=== PATIENT | female | born 1995 | race Caucasian/White ===

== ENCOUNTER 2018-06-03 16:49 | Emergency (ER) | payer OTHER ==
--- OUTSIDE RECORDS SUMMARY | 2018-06-03 17:01 | XMS REPORT | Continuity of Care Document ---
:1995 External Reference #:[id number] Author Name Jose Knowles M.D. Address [address] [facility] [address] [place] [address] Care Team Providers Name Role Phone Anthony Pastrana DESIGN PRINTING MACHINE SET UP OPERATOR Care Team Information Supervisor Reclamation Unavailable Payers Date Identification Numbers Payment Provider Subscriber Policy Number: [id number] [facility] Omayra Cabrera PayID: [id number] [address] [place] [address] Policy Number: [id number] [employer] Omayra Cabrera PayID: [id number] [address] [place] [address] Advance Directives Description No Information Available Problems Description No Information Family History Date Family Member(s) Observation Comments Father 61 Mother 60 Social History Type Date Description Comments Sex Unknown Occupation Student Occupation [employer] ETOH Use Denies alcohol use Tobacco Use Start: Unknown Patient has never smoked Smoking Status Reviewed: 02/26/17 Patient has never smoked Allergies, Adverse Reactions, Alerts Description No Known Drug Allergies Medications Medication Date Status Form Strength Qnty SIG Indications Ordering Provider Bacitracin 05/14/ Active Ointment 500Unit/GM 30gm apply to L03.012 Benson, (External) 2019 affected Jose Gómez, area three M.D. times a day as needed till healed Mizara / Active B/C-1 Tab Z30.41 Unknown 0000 qd Cipro 03/24/ Hx Tablets 500mg 20tab 1 tab by J01.40 Benson, 2018 - s mouth twice Jose Gómez, 04/03/ a day M.D. 2018 Amoxicillin 02/26/ Hx Capsules 500mg 30cap 1 by mouth J01.40 [facility], 2018 - s three times Ahmaisabell Gómez, 03/07/ a day M.D. 2017 Diflucan 02/17/ Hx Tablets 150mg 2tabs 1 tab by [facility], 2018 - mouth today Jose Gómez, and repeat M.D. 2017 in 1 week as needed Azithromycin 01/06/ Hx Tablets 250mg 6tabs take two Sujatha01.40 Benson 2017 - tablets by Jose Gómez, 02/06/ mouth as M.D. 2017 one dose on the first day then take one daily thereafter x 4 days Prednisone 01/06/ Hx Tablets 20mg 8tabs 2 tab by Sujatha01.40 [facility], 2017 - mouth daily Jose Gómez, 02/06/ 4 days M.D. 2017 Tamiflu 05/09/ Hx Capsules 75mg 10cap 1 cap by J09.x9 Benson 2018 - s mouth twice Jose Gómez, 05/13/ a day M.D. 2017 Clarithromycin 02/26/ Hx Tablets 500mg 20tab tab 1 by J01.40 [facility], 2017 - s mouth twice Jose Gómez, 03/18/ a day M.D. 2016 Azithromycin 12/11/ Hx Tablets 250mg 6tabs take two Sujatha01.40 [facility] 2016 - tablets by Jose Gómez, 12/16/ mouth as M.D. 2016 one dose on the first day then take one daily thereafter x 4 days Azithromycin 07/17/ Hx Tablets 500mg 7tabs 1 by mouth H66.93 [facility], 2016 - every day Jose Gómez, 07/23/ M.D. 2016 J01.40 Diflucan 07/17/2016 - Hx Tablets 150mg 2tabs 1 tab by [facility], 04/08/2017 mouth today Jose Gómez, and repeat in M.D. 1 week as needed Diflucan 05/15/2016 - Hx Tablets 100mg 10tabs 1 by mouth [facility], 05/25/2016 every day x Ahmaisabell Bourne., 10 days M.D. Azithromycin 05/07/2016 - Hx Tablets 500mg 10tabs 1 by mouth [facility], 05/16/2016 every day Ahmad M., M.D. Prednisone 05/07/2016 - Hx Tablets 20mg 18tabs 3 tab by [facility], 05/22/2016 mouth daily 3 Ahmad M., days, then 2 M.D. tab daily x 3 d , then 1 tab daily 3d Azithromycin 02/29/2016 - Hx Tablets 500mg 10tabs 1 by mouth J02.0 [facility], 03/07/2016 every day Ahmad M. M.D. Ibuprofen 02/29/2016 - Hx Tablets 800mg 90tabs 1 tab by J02.9 [facility], 04/08/2017 mouth every 8 Ahmad M., hours with M.D. food as needed for pain Amoxicillin 02/16/2016 - Hx Capsules 500mg 30caps 1 by mouth 02.9 [facility], 2016 three times a Ahmad M., day M.D. Amoxicillin 01/31/2016 - Hx Capsules 500mg 30caps 1 by mouth J02.9 [facility], 02/10/2016 three times a Ahmad M., day M.D. Prednisone 01/31/2016 - Hx Tablets 20mg 18tabs 3 tab by J02.9 [facility], 2016 mouth daily 3 Ahmad M., days, then 2 M.D. tab daily x 3 d , then 1 tab daily 3d Amoxicillin 01/03/2016 - Hx Tablets 500mg 30tabs 1 three times J02.9 [facility], 01/13/2016 a day x10 day Ahmad Rico M.D. Prednisone 01/03/2016 - Hx Tablets 20mg 18tabs 3 tab by 02.9 [facility], 01/13/2016 mouth daily 3 Ahmad M., days, then 2 M.D. tab daily x 3 d , then 1 tab daily 3d Silvadene 11/18/2015 - Hx Cream 1% 50G apply twice a [facility], 01/03/2016 day to Ahmad M., affected area M.D. --covering with telfa and adrianne Zithromax 10/07/2015 - Hx Tablets 250mg 6tabs tab 2 today S80.26 [facility], 10/12/2015 and then tab 2A Ahmad M., one by mouth M.D. every day x 4 days Amoxicillin 07/07/2015 - Hx Tablets 500mg 30tabs 1 three times J02.9 [facility], 07/18/2015 a day x10 day Jose Gómez M.D. Amoxicillin 05/16/2015 - Hx Tablets 500mg 40tabs 2 by mouth J20.9 [facility] , 05/26/2015 twice a day Jose Gómez M.D. Prednisone 05/16/2015 - Hx Tablets 20mg 8tabs 2 tab by J20.9 [facility], 05/20/2015 mouth daily 4 Jose Gómez, days M.D. Azithromycin 03/18/2015 - Hx Tablets 250mg 6tabs take two J01.80 [facility], 03/31/2015 tablets by Jose Gómez, mouth as one M.D. dose on the first day then take one daily thereafter x 4 days Omeprazole 03/18/2015 - Hx Capsules DR 40mg 30caps 1 by mouth A09 [facility] , 01/03/2016 every day Jose Gómez M.D. Medrol (Kevin) 12/06/2014 - Hx Tablets 4mg 1Pak use as 463 [facility], 03/31/2015 directed Jose Gómez M.D. Upper Back And 11/04/2014 - Hx modalities as [facility], Cervical Neck 05/09/2015 needed Jose Gómez PT M.Isabell. Please Evaluate 10/15/2014 - Hx dx: S/p [facility], For PT Need 01/20/2015 concussion Jose Gómez, and cervical M.DAury neck pain Penicillin V - Hx Solution 250mg/5M 462 Unknown Potassium 12/16/2014 Rec L 463 Lidocaine Viscous - 05/09/2015 Hx Solution 2% Unknown Immunizations CPT Code Status Date Vaccine Lot # 36141 Given 04/04/2015 Flu Vaccine [id number] 60623 Given 06/18/2014 TDaP [id number] 26220 Given 09/09/2013 Hep A Ped/Adolescent 2Dose Sched 77208 Given 03/10/2013 Meningococcal Conjugate Vaccine 02596 Given 03/10/2013 Flu Vaccine 58528 Given 03/10/2013 Hep A Ped/Adolescent 2Dose Sched 08625 Given 03/03/2012 Flu Vaccine 69952 Given 02/20/2011 Flu Vaccine 22736 Given 02/15/2010 Flu Vaccine 04142 Given 08/20/2009 Human Papilloma Virus (HPV) 36902 Given 04/19/2009 Human Papilloma Virus (HPV) 17047 Given 02/28/2009 Flu Vaccine 91707 Given 02/15/2009 Human Papilloma Virus (HPV) 21035 Given 02/11/2008 Meningococcal Conjugate Vaccine 25548 Given 02/11/2008 Flu Vaccine 42313 Given 02/04/2007 Flu Vaccine 51449 Given 10/15/2006 Varicella Vaccine 90212 Given 10/15/2006 TDaP 23662 Given 08/05/2000 DTaP NDC [id number] ML 0.50 28695 Given 08/05/2000 MMR 34811 Given 08/05/2000 IPV 31498 Given 09/14/1996 DTaP NDC [id number] ML 0.50 00276 Given 06/15/1996 IPV 66079 Given 06/15/1996 Hemophilus Influenza B Vaccine 26405 Given 04/03/1996 Varicella Vaccine 05632 Given 04/03/1996 MMR 54828 Given 1995 Hemophilus Influenza B Vaccine 06994 Given 1995 DTaP NDC [id number] ML 0.50 55755 Given 1995 IPV 21425 Given 1995 Hep B To Age 18 11064 Given 1995 IPV 88654 Given 1995 DTaP NDC [id number] ML 0.50 46643 Given 1995 Hemophilus Influenza B Vaccine 43866 Given 1995 Hep B To Age 18 33561 Given 1995 IPV 96814 Given 1995 DTaP NDC [id number] ML 0.50 30752 Given 1995 Hemophilus Influenza B Vaccine 63663 Given 1995 Hep B To Age 18 Vital Signs Date Vital Result Comment 05/14/2018 2:15pm BP Systolic 112 mmHg BP Diastolic 60 mmHg Height 68 inches 5'8" Weight 131.00 lb BMI (Body Mass Index) 19.9 kg/m2 Heart Rate 97 /min Respiratory Rate 16 /min 03/24/2018 10:02am BP Systolic 112 mmHg BP Diastolic 62 mmHg Height 68 inches 5'8" Weight 131.00 lb BMI (Body Mass Index) 19.9 kg/m2 Heart Rate 102 /min Respiratory Rate 16 /min 2018 3:24pm BP Systolic 112 mmHg BP Diastolic 60 mmHg Height 68 inches 5'8" Weight 134.00 lb BMI (Body Mass Index) 20.4 kg/m2 Heart Rate 98 /min Respiratory Rate 16 /min 01/06/2018 11:10am BP Systolic 102 mmHg BP Diastolic 56 mmHg Height 68 inches 5'8" Weight 133.00 lb BMI (Body Mass Index) 20.2 kg/m2 Heart Rate 70 /min Body Temperature 97.4 F Respiratory Rate 16 /min 05/09/2017 10:39am BP Systolic 98 mmHg BP Diastolic 56 mmHg Height 68 inches 5'8" Weight 131.00 lb BMI (Body Mass Index) 19.9 kg/m2 Heart Rate 86 /min Body Temperature 99.5 F Respiratory Rate 16 /min 2017 2:29pm BP Systolic 126 mmHg BP Diastolic 62 mmHg Height 68 inches 5'8" Weight 127.00 lb BMI (Body Mass Index) 19.3 kg/m2 Heart Rate 110 /min Body Temperature 99.3 F Respiratory Rate 16 /min 12/11/2016 3:24pm BP Systolic 110 mmHg BP Diastolic 70 mmHg Height 68 inches 5'8" Weight 142.00 lb BMI (Body Mass Index) 21.6 kg/m2 Heart Rate 95 /min Body Temperature 97.0 F Respiratory Rate 14 /min 07/17/2016 11:05am Height 68 inches 5'8" Weight 141.00 lb BMI (Body Mass Index) 21.4 kg/m2 Respiratory Rate 12 /min 07/11/2016 2:17pm BP Systolic 112 mmHg BP Diastolic 70 mmHg Height 68 inches 5'8" Weight 143.00 lb BMI (Body Mass Index) 21.7 kg/m2 Heart Rate 101 /min Respiratory Rate 12 /min 07/06/2016 1:24pm BP Systolic 126 mmHg BP Diastolic 62 mmHg Height 68 inches 5'8" Weight 143.00 lb BMI (Body Mass Index) 21.7 kg/m2 Heart Rate 94 /min Respiratory Rate 12 /min 05/07/2016 1:47pm BP Systolic 130 mmHg BP Diastolic 78 mmHg Height 68 inches 5'8" Weight 126.00 lb BMI (Body Mass Index) 19.2 kg/m2 Heart Rate 109 /min Body Temperature 97.3 F 02/29/2016 10:52am BP Systolic 116 mmHg BP Diastolic 72 mmHg Height 68 inches 5'8" Weight 141.00 lb BMI (Body Mass Index) 21.4 kg/m2 Heart Rate 88 /min Body Temperature 98.2 F Respiratory Rate 12 /min 02/16/2016 3:38pm BP Systolic 122 mmHg BP Diastolic 66 mmHg Height 68 inches 5'8" Weight 141.00 lb BMI (Body Mass Index) 21.4 kg/m2 Heart Rate 87 /min Body Temperature 97.4 F Respiratory Rate 16 /min 01/31/2016 3:17pm BP Systolic 122 mmHg BP Diastolic 70 mmHg Height 68 inches 5'8" Weight 143.00 lb BMI (Body Mass Index) 21.7 kg/m2 Heart Rate 101 /min Body Temperature 98.7 F Respiratory Rate 12 /min 01/03/2016 2:40pm BP Systolic 116 mmHg BP Diastolic 70 mmHg Height 68 inches 5'8" Weight 140.00 lb BMI (Body Mass Index) 21.3 kg/m2 Heart Rate 80 /min Body Temperature 97.5 F Respiratory Rate 12 /min 12/06/2015 4:32pm BP Systolic 114 mmHg BP Diastolic 70 mmHg Height 68 inches 5'8" Weight 142.00 lb BMI (Body Mass Index) 21.6 kg/m2 Heart Rate 80 /min Body Temperature 97.3 F 10/07/2015 8:34am BP Systolic 118 mmHg BP Diastolic 70 mmHg Height 68 inches 5'8" Weight 137.00 lb BMI (Body Mass Index) 20.8 kg/m2 Heart Rate 80 /min Respiratory Rate 12 /min 07/07/2015 4:02pm BP Systolic 116 mmHg BP Diastolic 72 mmHg Height 68 inches 5'8" Weight 140.00 lb BMI (Body Mass Index) 21.3 kg/m2 Heart Rate 76 /min Body Temperature 99.6 F Respiratory Rate 16 /min 05/16/2015 11:19am BP Systolic 114 mmHg BP Diastolic 68 mmHg Height 68 inches 5'8" Weight 142.00 lb BMI (Body Mass Index) 21.6 kg/m2 Heart Rate 80 /min Body Temperature 98.7 F Respiratory Rate 12 /min 04/04/2015 10:58am BP Systolic 110 mmHg BP Diastolic 76 mmHg Height 68 inches 5'8" Weight 148.00 lb BMI (Body Mass Index) 22.5 kg/m2 Heart Rate 76 /min Body Temperature 97.6 F Respiratory Rate 12 /min 12/10/2014 11:23am BP Systolic 116 mmHg BP Diastolic 70 mmHg Height 68 inches 5'8" Weight 147.00 lb BMI (Body Mass Index) 22.3 kg/m2 Heart Rate 76 /min Respiratory Rate 16 /min 12/06/2014 11:56am BP Systolic 112 mmHg BP Diastolic 64 mmHg Height 68 inches 5'8" Weight 147.00 lb BMI (Body Mass Index) 22.3 kg/m2 Heart Rate 80 /min Body Temperature 98.6 F Respiratory Rate 12 /min 11/25/2014 10:23am BP Systolic 116 mmHg BP Diastolic 70 mmHg Height 68 inches 5'8" Weight 146.00 lb BMI (Body Mass Index) 22.2 kg/m2 Heart Rate 96 /min Respiratory Rate 12 /min 10/18/2014 9:39am BP Systolic 112 mmHg BP Diastolic 76 mmHg Height 68 inches 5'8" Weight 146.00 lb BMI (Body Mass Index) 22.2 kg/m2 Heart Rate 80 /min Respiratory Rate 12 /min 10/12/2014 3:30pm BP Systolic 116 mmHg BP Diastolic 64 mmHg Height 68 inches 5'8" Weight 146.00 lb BMI (Body Mass Index) 22.2 kg/m2 Heart Rate 88 /min Respiratory Rate 12 /min 09/23/2014 2:01pm BP Systolic 118 mmHg BP Diastolic 62 mmHg Height 68 inches 5'8" Weight 142.00 lb BMI (Body Mass Index) 21.6 kg/m2 Heart Rate 88 /min Body Temperature 98.1 F Respiratory Rate 12 /min 06/18/2014 4:24pm BP Systolic 116 mmHg BP Diastolic 70 mmHg Height 68 inches 5'8" Weight 142.00 lb BMI (Body Mass Index) 21.6 kg/m2 Heart Rate 80 /min Body Temperature 99.3 F Respiratory Rate 12 /min Results Test Date Facility Test Result H/L Range Note CBC With Diff 07/06/2016 [facility] WBC 10.3 10*3/uL (4.1-11.0) [facility] (607)- - RBC 4.54 10*6/uL (4.00-5.40) HGB 14.2 g/dL (12.0-16.0) HCT 42.4 % (36.0-47.0) MCV 93.4 fL (80.0-95.0) MCH 31.3 pg (27.0-32.0) MCHC 33.5 g/dL (32.0-36.0) RDW 13.7 % (10.5-14.5) PLT 259 10*3/uL (150-450) MPV 9.4 fL (7.1-10.7) Neut % 63.4 % (35.0-75.0) Lymph % 29.2 % (16.0-52.0) [place] % 6.3 % (0.0-8.0) Eos % 0.5 % (0.0-5.0) Baso % 0.6 % (0.0-4.0) Neut # 6.5 10*3/uL (1.8-7.7) Lymph # 3.0 10*3/uL (1.2-4.8) [place] # 0.6 10*3/uL (0.0-0.8) Eos # 0.1 10*3/uL (0.0-0.5) Baso # 0.1 10*3/uL (0.0-0.2) CMP 07/06/2016 [facility] Sodium 140 mmol/L (136-145) [address] [facility] (607)- - Potassium 4.2 mmol/L (3.6-5.2) Chloride 105 mmol/L (100-108) Co2 27 mmol/L (22-31) Anion Gap 8 mmol/L (7-16) Urea Nitrogen 11 mg/dL (7-24) Creatinine 0.86 mg/dL (0.60-1.00) BUN/Creat Ratio 12.8 RATIO (10.0-20.0) Glucose 88 mg/dL (70-99) Calcium 9.0 mg/dL (8.4-10.2) Total Protein 7.3 g/dL (6.4-8.2) Albumin 3.9 g/dL (3.5-4.6) Globulin 3.4 g/dL (2.7-4.3) Alb/Glob Ratio 1.1 RATIO Alkaline Phosphatase 61 U/L (45-117) Bilirubin,Total 0.3 mg/dL (0.0-1.0) Ast (Sgot) 19 U/L (11-39) Alt (SGPT) 24 U/L (12-78) GFR >60 ml/min/1.73m2 (>59) GFR ( Amer) >60 ml/min/1.73m2 (>59) GFR Interpretation <SEE NOTE> 1 Lyme Disease 07/06/2016 [facility] Lyme Igm/Igg AB NEGATIVE (Neg) 2 Antibodies [address] [facility] @ Igg/Igm (607)- - Laboratory test 07/06/2016 [facility] TSH,Ultrasensiti 0.914 mIU/L ( 0.360-4.1 finding [address] ve @ 70) (607)- - Hemoglobin A1c 07/06/2016 [facility] Hemoglobin A1c @ 4.6 % (4.0-6.0) [address] (607)- - Est Average Glucose 85 mg/dL 3 Laboratory test 07/06/2016 [facility] Rheumatoid Factor <15 IU/mL (0- 15) finding [address] @ (607)- - Deidra Screen @ NEGATIVE (Neg) Ebv Early Ag Igg @ NEGATIVE (Neg) 1 NORMAL KIDNEY FUNCTION OR MILD DISEASE - GFR >OR=60 CHRONIC KIDNEY DISEASE - GFR 15 - 59 RENAL FAILURE - GFR <15 Est. GFR calculation based on the MDRD study equation, which assumes a steady state for creatinine. Est. GFR should not be used for medication dosing. 2 A Negative serologic test for Lyme Disease indicates no serologic evidence of infection with B burgdorferi at the time this specimen was collected. A repeat specimen should be collected in 2 to 4 weeks if clinically indicated. 3 HEMOGLOBIN A1c INTERPRETATION: 4.0-6.0% GOOD GLYCEMIC CONTROL 6.1-6.5% AT RISK FOR HYPERGLYCEMIA >6.5% DIABETIC/ POOR GLYCEMIC CONTROL REFERENCE: DIABETES CARE 32(7), 2009 IF A1c RESULT IS INCONSISTENT WITH CLINICAL ESTIMATES OF GLYCEMIC CONTROL, AN INTERFERING Hb VARIANT SHOULD BE CONSIDERED. Procedures Date Code Description Status 2018 94931 Spirometry Completed 2018 54827 Tympanometry Completed 01/06/2018 91403 Spirometry Completed 01/06/2018 35959 Tympanometry Completed 05/09/2017 39518 Spirometry Completed 05/09/2017 95444 Tympanometry Completed 12/11/2016 59451 Tympanometry Completed 07/17/2016 29809 Spirometry Completed 07/17/2016 79838 Tympanometry Completed 05/07/2016 81014 Spirometry Completed 05/07/2016 81393 Tympanometry Completed 02/29/2016 17120 Spirometry Completed 02/29/2016 27822 Tympanometry Completed 05/16/2015 58753 Spirometry Completed 05/16/2015 14945 Tympanometry Completed 11/25/2014 47715 EKG Completed Encounters Type Date Location Provider Dx Diagnosis Office Visit 05/14/2018 Jose Cronin J30.9 Allergic rhinitis, 2:30p M.D. unspecified L20.9 Atopic dermatitis, unspecified F41.9 Anxiety disorder, unspecified K21.9 Gastro-esophageal reflux disease without esophagitis Z30.41 Encounter for surveillance of contraceptive pills J01.40 Acute pansinusitis, unspecified H66.93 Otitis media, unspecified, bilateral R06.02 Shortness of breath R05 Cough R09.81 Nasal congestion L03.012 Cellulitis of left finger M79.645 Pain in left finger(s) Office Visit 03/24/2018 10:00a Jose Cronin J30.9 Allergic rhinitis, M.D. unspecified L20.9 Atopic dermatitis, unspecified F41.9 Anxiety disorder, unspecified K21.9 Gastro-esophageal reflux disease without esophagitis Z30.41 Encounter for surveillance of contraceptive pills J01.40 Acute pansinusitis, unspecified H66.93 Otitis media, unspecified, bilateral R06.02 Shortness of breath R05 Cough R09.81 Nasal congestion Office Visit 2018 3:30p Jose Cronin J30.9 Allergic rhinitis, M.D. unspecified L20.9 Atopic dermatitis, unspecified F41.9 Anxiety disorder, unspecified K21.9 Gastro-esophageal reflux disease without esophagitis Z30.41 Encounter for surveillance of contraceptive pills J01.40 Acute pansinusitis, unspecified H66.93 Otitis media, unspecified, bilateral R06.02 Shortness of breath R05 Cough R09.81 Nasal congestion Office Visit 01/06/2018 11:15a Jose Cronin J30.9 Allergic rhinitis, M.D. unspecified L20.9 Atopic dermatitis, unspecified F41.9 Anxiety disorder, unspecified K21.9 Gastro-esophageal reflux disease without esophagitis Z30.41 Encounter for surveillance of contraceptive pills J01.40 Acute pansinusitis, unspecified H66.93 Otitis media, unspecified, bilateral R06.02 Shortness of breath R05 Cough R09.81 Nasal congestion Office Visit 05/09/2017 10:45a Jose Cronin J30.9 Allergic rhinitis, M.D. unspecified L20.9 Atopic dermatitis, unspecified F41.9 Anxiety disorder, unspecified K21.9 Gastro-esophageal reflux disease without esophagitis H66.93 Otitis media, unspecified, bilateral Z30.41 Encounter for surveillance of contraceptive pills J09.x9 Flu due to ident novel influenza A virus w oth manifest R11.2 Nausea with vomiting, unspecified R50.9 Fever, unspecified R53.83 Other fatigue R05 Cough R09.81 Nasal congestion Z00.01 Encounter for general adult medical exam w abnormal findings Office Visit 2017 2:30p Anthony Gates J01.40 Acute pansinusitis, unspecified Office Visit 12/11/2016 3:30p Anthony Gates R53.83 Other fatigue J30.9 Allergic rhinitis, unspecified J01.40 Acute pansinusitis, unspecified Office Visit 07/17/2016 11:00a Jose Cronin F41.9 Anxiety disorder, M.D. unspecified R53.83 Other fatigue J30.9 Allergic rhinitis, unspecified L20.9 Atopic dermatitis, unspecified K21.9 Gastro-esophageal reflux disease without esophagitis H66.93 Otitis media, unspecified, bilateral J01.40 Acute pansinusitis, unspecified R06.02 Shortness of breath R05 Cough R09.81 Nasal congestion Z30.41 Encounter for surveillance of contraceptive pills Office Visit 07/11/2016 2:15p Jose Cronin, F41.9 Anxiety disorder, M.D. unspecified R53.83 Other fatigue J30.9 Allergic rhinitis, unspecified L20.9 Atopic dermatitis, unspecified K21.9 Gastro-esophageal reflux disease without esophagitis Office Visit 07/06/2016 1:30p Anthony Gates R53.83 Other fatigue M79.1 Myalgia R53.83 Other fatigue R53.81 Other malaise M79.605 Pain in left leg Office Visit 05/07/2016 1:45p Jose Cronin, H66.93 Otitis media, M.D. 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 unspecified J02.0 Streptococcal pharyngitis H66.93 Otitis media, unspecified, bilateral J01.40 Acute pansinusitis, unspecified R06.02 Shortness of breath R05 Cough R09.81 Nasal congestion J30.9 Allergic rhinitis, unspecified L20.9 Atopic dermatitis, unspecified Z79.3 correction (current) use of hormonal contraceptives K21.0 Gastro-esophageal reflux disease with esophagitis K30 Functional dyspepsia Office Visit 02/16/2016 3:30p Anthony Gates J02.9 Acute pharyngitis, unspecified R53.83 Other fatigue R50.9 Fever, unspecified R05 Cough Office Visit 01/31/2016 3:15p Lexie White, Anthony DESIGN PRINTING MACHINE SET UP OPERATOR J02.9 Acute pharyngitis, unspecified R53.83 Other fatigue R50.9 Fever, unspecified Office Visit 01/03/2016 2:45p Anthony Gates DESIGN PRINTING MACHINE SET UP OPERATOR J02.9 Acute pharyngitis, unspecified R53.83 Other fatigue R50.9 Fever, unspecified Office Visit 12/06/2015 4:30p Anthony Gates A09 Infectious DESIGN PRINTING MACHINE SET UP OPERATOR gastroenteritis and colitis, unspecified Office Visit 10/07/2015 8:30a Anthony Gates S80.262A Insect bite DESIGN PRINTING MACHINE SET UP OPERATOR (nonvenomous), left knee, initial encounter Office Visit 07/07/2015 4:00p Anthony Gates R05 Cough DESIGN PRINTING MACHINE SET UP OPERATOR J02.9 Acute pharyngitis, unspecified R53.83 Other fatigue R50.9 Fever, unspecified Office Visit 05/16/2015 11:00a Jose Cronin, J20.9 Acute bronchitis, M.D. unspecified H66.93 Otitis media, unspecified, bilateral J01.40 Acute pansinusitis, unspecified R05 Cough R06.02 Shortness of breath R09.81 Nasal congestion J30.9 Allergic rhinitis, unspecified L20.9 Atopic dermatitis, unspecified M25.562 Pain in left knee Z79.3 correction (current) use of hormonal contraceptives K21.0 Gastro-esophageal reflux disease with esophagitis K30 Functional dyspepsia Office Visit 04/04/2015 11:00a Anthony Gates DESIGN PRINTING MACHINE SET UP OPERATOR Z23 Encounter for immunization Office Visit 03/18/2015 2:15p Anthony Gates DESIGN PRINTING MACHINE SET UP OPERATOR J01.80 Other acute sinusitis K21.0 Gastro-esophageal reflux disease with esophagitis Office Visit 12/10/2014 11:15a Anthony Gates DESIGN PRINTING MACHINE SET UP OPERATOR 462 Pharyngitis Acute 463 Tonsillitis Acute 850.11 Concussion With Loss Of Consciousness Of 30 Mins Or Less Office Visit 12/06/2014 11:45a Anthony Gates DESIGN PRINTING MACHINE SET UP OPERATOR 462 Pharyngitis Acute 785.6 Lymph Nodes Enlargement 463 Tonsillitis Acute Office Visit 11/25/2014 10:00a Anthony Gates DESIGN PRINTING MACHINE SET UP OPERATOR 850.11 Concussion With Loss Of Consciousness Of 30 Mins Or Less 784.0 Headache 785.0 Tachycardia Unspec Office Visit 10/18/2014 9:30a Anthony Gates DESIGN PRINTING MACHINE SET UP OPERATOR 850.11 Concussion With Loss Of Consciousness Of 30 Mins Or Less 723.1 Cervicalgia 784.0 Headache Office Visit 10/12/2014 3:30p Anthony Gates DESIGN PRINTING MACHINE SET UP OPERATOR 850.11 Concussion With Loss Of Consciousness Of 30 Mins Or Less 784.0 Headache 723.1 Cervicalgia Office Visit 09/23/2014 2:00p Anthony Gatse DESIGN PRINTING MACHINE SET UP OPERATOR 558.9 Gastroenteritis & Colitis Noninfectious Other Office Visit 06/18/2014 4:00p Anthony GatesP V06.8 Combination Diseases Other Vaccination & Inoculation 784.0 Headache V25.09 Contraceptive Management Other Plan of Treatment 05/14/2018 - Jose Knowles M.D.J30.9 Allergic rhinitis, unspecifiedComments: INCREASE PO FLUID USE ANTIHISTAMINE PRN SECOND HAND SMOKING PTMOTDBBWI40.9 Atopic dermatitis, unspecifiedComments:SKIN CARE INSTRUCTIONS LOTION OR BABY OIL 2-3 APPLICATION PER DAYUSE MOISTURIZING SOAPAVOID PROLONGED WATER EXPOSUREAVOID USING HOT WATER IN KREEUGQ04.9 Anxiety disorder, unspecifiedComments:COUNCELLING AND REASSURANCE RELAXATION TECHNIQUES DISCUSSEDCOUNSELED RE: STRESSORS IN LIFE AVOID ALLENERGY/HIGH CAFFEINE KEJBGAZ59.9 Gastro-esophageal reflux disease without esophagitisComments:AVOID CAFFEINE, ETOH AND SPICY FOODSTUMS OR MYLANTA PRN CALL WITH PROBLEMS OR VSVDPTBKU60.41 Encounter for surveillance of contraceptive pillsComments:F/U WITH OB/GYNJ01.40 Acute pansinusitis, unspecifiedComments:VHLHKUFLT50.93 Otitis media, unspecified, bilateralComments:CIFKGHSWT52.02 Shortness of breathComments :[id number] CoughComments:PAULZKAEM27.81 Nasal congestionComments: OAVRKPVXD93.012 Cellulitis of left fingerNew Medication:Bacitracin (External) 500 Unit/GM - apply to affected area three times a day as needed till healedComments:WOUND [id number] Pain in left finger(s)Comments:EXERCISE/HEAT/ MESSAGE TYLENOL OR MOTRIN PRNAVOID HEAVY LIFTING KANA WRAP PRNELEVATE PRN
[2018-06-03 17:55] VITALS: BP 108/68
[2018-06-03 18:41] LABS: Influenza A Molecular NEGATIVE (Negative); Influenza B Molecular NEGATIVE (Negative)
--- NOTE | 2018-06-03 18:47 | UC ---
Respiratory Complaint HPI - HPI Summary HPI Summary: 23 yo female with nasal congestion/cough/COLLADO, f/c no CP or SOB, has vomiting no diarrhea ill 1-2 days no UTI symptoms - History of Current Complaint Chief Complaint: UCGeneralIllness Stated Complaint: COUGH,COLLADO,VOMITTING Time Seen by Provider: 06/03/18 18:15 Hx Obtained From: Patient Hx Last Menstrual Period: depo Onset/Duration: Gradual Onset, Lasting Days Timing: Constant Severity Initially: Moderate Pain Intensity: 0 Pain Scale Used: 0-10 Numeric Character: Cough: Nonproductive Aggravating Factors: Nothing Alleviating Factors: Nothing Associated Signs And Symptoms: Positive: Fever, Chills, Nasal Congestion - Allergies/Home Medications Allergies/Adverse Reactions: Allergies Allergy/AdvReac Type Severity Reaction Status Date / Time No Known Allergies Allergy Verified 06/03/18 17:51 Home Medications: Home Medications medroxyPROGESTERone ACETATE* [DEPO-Provera] 150 mg IM Q3M 06/03/18 [History Confirmed 06/03/18] PMH/Surg Hx/FS Hx/Imm Hx Previously Healthy: Yes - Surgical History Surgical History: Yes Surgery Procedure, Year, and Place: tonsillectomy - Family History Known Family History: Positive: Hypertension - Social History Alcohol Use: Rare Substance Use Type: None Smoking Status (MU): Never Smoked Tobacco Review of Systems All Other Systems Reviewed And Are Negative: Yes Constitutional: Positive: Fever, Chills, Fatigue Skin: Positive: Negative Eyes: Positive: Negative ENT: Positive: Nasal Discharge, Sinus Congestion Respiratory: Positive: Cough Cardiovascular: Positive: Negative Gastrointestinal: Positive: Vomiting - x1 Genitourinary: Positive: Negative Motor: Positive: Negative Neurovascular: Positive: Negative Musculoskeletal: Positive: Myalgia Neurological: Positive: Headache Psychological: Positive: Negative Physical Exam Triage Information Reviewed: Yes Appearance: Well-Appearing, No Pain Distress, Well-Nourished Vital Signs: Initial Vital Signs Temp 99.1 F 06/03/18 17:51 Pulse 79 06/03/18 17:51 Resp 15 06/03/18 17:51 BP 108/68 06/03/18 17:51 Pulse Ox 100 06/03/18 17:51 Vital Signs Reviewed: Yes Eyes: Positive: Conjunctiva Clear ENT: Positive: Hearing grossly normal, Pharynx normal, Nasal congestion, TMs normal, Uvula midline. Negative: Nasal drainage, TM bulging, TM dull, TM red, Tonsillar swelling, Tonsillar exudate, Trismus, Muffled voice, Hoarse voice, Dental tenderness, Sinus tenderness Neck: Positive: Supple, Nontender, No Lymphadenopathy Respiratory: Positive: Lungs clear, Normal breath sounds, No respiratory distress, No accessory muscle use Cardiovascular: Positive: RRR, No Murmur, Pulses Normal Abdomen Description: Positive: Nontender, No Organomegaly, Soft. Negative: CVA Tenderness (R), CVA Tenderness (L) Bowel Sounds: Positive: Present Neurological: Positive: Muscle Tone Normal Psychological Exam: Normal Skin Exam: Normal UC Diagnostic Evaluation - Laboratory O2 Sat by Pulse Oximetry: 100 - normal/not hypoxic Respiratory Course/Dx - Differential Dx/Diagnosis Provider Diagnosis: Acute viral syndrome Discharge - Sign-Out/Discharge Documenting (check all that apply): Patient Departure All imaging exams completed and their final reports reviewed: No Studies - Discharge Plan Condition: Stable Disposition: HOME Prescriptions: Ondansetron TAB* [Zofran Tab*] 4 mg PO Q6H PRN #10 tab PRN Reason: Nausea Patient Education Materials: Viral Syndrome (ED) Forms: *School Release, *Work Release Referrals: Jose Knowles MD [Primary Care Provider] - 3 Days Additional Instructions: rest fluids tylenol or advil recheck for new or worsening symptoms recheck in 3 days if not better - Billing Disposition and Condition Condition: STABLE Disposition: Home
== END 2018-06-03 18:56 | disposition home or self-care (01) ==
LOC: UCCORT 16:49
DX: B34.9 Viral infection, unspecified (principal); R09.81 Nasal congestion; R05 Cough; R51 Headache; R11.10 Vomiting, unspecified
CPT/HCPCS: 99202; G0463